=== PATIENT | female | born 1975 | race Caucasian/White ===

== ENCOUNTER → 2017-04-18 | Outpatient (CLI) | payer OTHER ==
[~2017-04-18] MED LIST: ALDACTONE25 MG PO; B12INJ; DESYREL50 MG PO; DIAZIDE PO; IBUPROFEN 800800 M1 PO; LAXATIVE DIETA500 MG PO; LEVOXYL88 MCG PO; MAGNESIUM400 MG PO; MOTION RELIEF25 MG PO; NORCO 5-325 TA1 EACH PO; NORFLEX100 MG PO; NUVIGIL PO; PHENERGAN 25 MG25 M1 PO; PROZAC40 MG PO; RELPAX40 MG PO; SEASONIQUE PO; SYNTHROID100 MCG PO; TOPAMAX 25 MG T25 M1 PO; TOPAMAX100 MG PO; TRIAMTERENE-HC1 EAC1 PO; VERAPAMIL ER240 M1 PO; VITAMIN B12 IM; ZOFRAN ODT4 MG PO
== END ==
LOC: RAD 04:22
DX: Z12.31 Encounter for screening mammogram for malignant neoplasm of breast (principal)

== ENCOUNTER → 2018-05-07 | Outpatient (CLI) | payer OTHER | LOC: BC 01:23 | DX: Z12.31 Encounter for screening mammogram for malignant neoplasm of breast (principal) ==

== ENCOUNTER → 2019-04-22 | Outpatient (CLI) | payer OTHER | LOC: BC 08:20 | DX: Z12.31 Encounter for screening mammogram for malignant neoplasm of breast (principal) ==

== ENCOUNTER → 2020-04-27 | Outpatient (CLI) | payer OTHER | LOC: BC 13:07 | PROVIDERS: ATTEND Internal Medicine | DX: Z12.31 Encounter for screening mammogram for malignant neoplasm of breast (principal) ==

== ENCOUNTER → 2021-05-03 | Outpatient (CLI) | payer OTHER | LOC: BC 09:31 | PROVIDERS: ATTEND Internal Medicine | DX: Z12.31 Encounter for screening mammogram for malignant neoplasm of breast (principal) ==